=== PATIENT | female | born 1975 | race Caucasian/White ===

== ENCOUNTER 2017-11-04 12:41 | Emergency (ER) | payer OTHER ==
[2017-11-04] MEDS: NS 0.9% 1000 ML* 2,000 ML IV ONE ×2 (13:15→13:16)
[2017-11-04 13:26] LABS: ABS Basophils 0 10^3/ul (0-0.2); ABS Eosinophils 0.1 10^3/ul (0-0.6); ABS Lymphocytes 1.3 10^3/ul (1.0-4.8); ABS Monocytes 0.4 10^3/ul (0-0.8); ABS Nucleated RBC 0 10^3/ul; Eosinophil % 2.4 % (0-6); Hematocrit 37 % (35-47); Hemoglobin 12.5 g/dl (12.0-16.0); Lymphocyte % 22.1 % (25-47); Mean Corpuscular HGB Conc 34 g/dl (31-36); Mean Corpuscular Hemoglobin 31 pg (27-31); Mean Corpuscular Volume 90 fL (80-97); Mean Platelet Volume 8.6 um3 (7.4-10.4); Nucleated Red Blood Cells % 0; Platelet Count 250 10^3/ul (150-450); Red Blood Count 4.05 10^6/ul (4.0-5.4); Red Cell Distribution Width 13 % (10.5-15); White Blood Count 5.9 10^3/ul (3.5-10.8)
[2017-11-04 13:43] LABS: EGFR Non-African American 97.5 (>60)
[2017-11-04 14:18] LABS: Urine Appearance Clear; Urine Blood Negative (Negative); Urine Color Yellow; Urine Ketones Negative (Negative); Urine Protein Negative (Negative); Urine Specific Gravity 1.019 (1.010-1.030); Urine Urobilinogen Negative (Negative)
--- NOTE | 2017-11-04 14:29 | RAD ---
INDICATION: Left lower quadrant pain COMPARISON: Pelvic sonogram June 16, 2016 TECHNIQUE: Longitudinal and transverse transvaginal and Limited transabdominal scans of the pelvis were obtained. FINDINGS: Uterus: The uterus is normal in size. There are no focal masses. The uterus measures 8.1 x 3.1 x 4.5 cm. Endometrial thickness: The endometrial thickness is measured at 1.0 cm. . Free fluid: There is no significant free fluid . Ovaries: The ovaries are normal in size. The right ovary measures 3.0 x 1.9 x 3.4 cm. The left ovary measures 3.1 x 2.0 x 2.6 cm. There are multiple small follicles. Doppler interrogation demonstrates flow to each ovary. Other: None IMPRESSION: NEGATIVE EXAMINATION.
--- NOTE | 2017-11-04 16:29 | RAD ---
INDICATION: Left lower quadrant abdominal pain, history of diverticulitis. COMPARISON: Correlation is made with a prior study from June 05, 2016. TECHNIQUE: A CT scan of the abdomen and pelvis was performed without intravenous and with oral contrast. Contiguous axial sections were obtained from the lung bases through the symphysis pubis. Images were reconstructed in the coronal and sagittal planes. FINDINGS: The lung bases are clear. No pleural effusion is present. The liver and spleen are within normal limits in size without significant focal abnormality on this noncontrast study. No calcified gallstones are seen. The pancreas appears to be within normal limits in size. The adrenal glands and kidneys are normal in size. No renal calculi or hydronephrosis is seen. The aorta is normal in caliber without significant calcific plaque. No significant enlarged retroperitoneal lymph nodes are seen. The stomach, small and large bowel appear nondistended. The appendix is within normal limits. There is mild descending and sigmoid diverticulosis without evidence for diverticulitis. There is a soft tissue density mass arising from the subserosal surface of the fundus of uterus on the left side measuring approximately 3.0 x 2.0 cm in size which is unchanged from the prior exam suggestive of a fibroid although nonspecific. No significant focal osseous abnormality is seen. IMPRESSION: 1. NO EVIDENCE FOR ACUTE FINDING OR CAUSE FOR THE PATIENT'S ABDOMINAL PAIN IS SEEN. 2. SOFT TISSUE DENSITY MASS ARISING FROM THE FUNDUS OF THE UTERUS UNCHANGED FROM THE PRIOR EXAM SUGGESTIVE OF A SUBSEROSAL LEIOMYOMA ALTHOUGH NONSPECIFIC. THIS COULD BE FURTHER EVALUATED WITH AN OUTPATIENT PELVIC ULTRASOUND OR MRI CLINICALLY NEEDED.
--- NOTE | 2017-11-04 17:16 | ED ---
Rahul Way Jennifer, scribed for Isai Barajas MD on 11/04/17 at 1255 . Abdominal Pain/Female - HPI Summary HPI Summary: The patient is a 42 year old female who was sent to the ED by her PMD for abdominal pain that began 3-4 days ago. The patient reports she has a history of diverticulitis but this pain is slightly different. Her abdominal pain is located to the lower left of the midline and is constant. It is rated a 7/10 at its worst. The patient reports that deep breaths worsen the pain and characterizes it as a stabbing pain. She adds that when she urinates or has bowel movements, her abdominal spasms and cramps. The pain also radiates to her lower back. She additionally complains of feel achey and feverish, as well as nauseous when eating. She denies vaginal discharge. Her last menstrual period was two weeks ago. - History of Current Complaint Chief Complaint: EDAbdPain Stated Complaint: ABD PAIN Time Seen by Provider: 11/04/17 12:48 Hx Obtained From: Patient Hx Last Menstrual Period: 1.5 WEEKS AGO Onset/Duration: Sudden Onset, Lasting Days - 3-4 days ago, Still Present Timing: Constant Severity Initially: Moderate Severity Currently: Moderate Pain Intensity: 5 Pain Scale Used: 0-10 Numeric Location: Umbilical Radiates: Yes Radiates to: Back - Lower back Character: Sharp, Cramping - Spasming Aggravating Factor(s): Movement, Deep Breaths Alleviating Factor(s): Nothing Associated Signs and Symptoms: Positive: Other: - Abdominal pain, cramping, feels achey and feverish, nauseous when eating, decreased appetite. NEGATIVE: discharge Allergies/Adverse Reactions: Allergies Allergy/AdvReac Type Severity Reaction Status Date / Time erythromycin base Allergy Itching Verified 11/04/17 14:09 latex Allergy Itching Verified 11/04/17 14:09 metronidazole [From Flagyl] Allergy Muscle Ache Verified 11/04/17 14:09 peanut Allergy Anaphylatic Verified 11/04/17 14:09 Shock prednisone Allergy Unknown Verified 11/04/17 14:09 Reaction Details Sulfa (Sulfonamide Allergy Itching Verified 11/04/17 14:09 Antibiotics) hida scan chemicals Allergy Anxiety Uncoded 10/26/17 10:46 Home Medications: Home Medications NK [No Home Medications Reported] 11/04/17 [History Confirmed 11/04/17] PMH/Surg Hx/FS Hx/Imm Hx Endocrine/Hematology History: Denies: Hx Diabetes, Hx Thyroid Disease Cardiovascular History: Denies: Hx Congestive Heart Failure, Hx Hypertension, Hx Pacemaker/ICD Respiratory History: Denies: Hx Asthma, Hx Chronic Obstructive Pulmonary Disease (COPD) GI History: Reports: Hx Diverticulosis, Hx Pyloric Stenosis, Other GI Disorders - HIATAL HERNIA Denies: Hx Ulcer History: Denies: Hx Renal Disease Sensory History: Denies: Hx Hearing Aid Neurological History: Reports: Other Neuro Impairments/Disorders - post concussion syndrome Psychiatric History: Reports: Hx Panic Disorder - Surgical History Surgery Procedure, Year, and Place: 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 LAPROSCOPY TO R/O ENDOMETRIOSIS Infectious Disease History: No Infectious Disease History: Denies: Hx Clostridium Difficile, Hx Hepatitis, Hx Human Immunodeficiency Virus (HIV), Hx of Known/Suspected MRSA, Hx Shingles, Hx Tuberculosis, Traveled Outside the [place] in Last 30 Days - Family History Known Family History: Positive: Hypertension, Diabetes - Social History Alcohol Use: None Substance Use Type: Reports: None Substance Use Comment - Amount & Last Used: anxiety Smoking Status (MU): Former Smoker Review of Systems Positive: Fever - Feels feverish, Other - Feels achey Positive: Abdominal Pain, Nausea Negative: discharge All Other Systems Reviewed And Are Negative: Yes Physical Exam - Summary Physical Exam Summary: General: well-appearing, no pain distress Skin: warm, color reflects adequate perfusion, dry Head: normal Eyes: EOMI, TENNILLE ENT: normal Neck: supple, nontender Respiratory: CTA, breath sounds present Cardiovascular: RRR Abdomen: soft, tender in LLQ Bowel: present Musculoskeletal: normal, strength/ROM intact Neurological: normal, sensory/motor intact, A&O x3 Psychological: affect/mood appropriate Triage Information Reviewed: Yes Vital Signs On Initial Exam: Initial Vitals Temp Pulse Resp BP Pulse Ox 98.5 F 56 16 86/65 98 11/04/17 12:43 11/04/17 12:43 11/04/17 12:43 11/04/17 12:43 11/04/17 12:43 Vital Signs Reviewed: Yes Diagnostics - Vital Signs Vital Signs Temp Pulse Resp BP Pulse Ox 11/04/17 12:43 98.5 F 56 16 86/65 98 - Laboratory Lab Results: Lab Results 11/04/17 11/04/17 11/04/17 Range/Units 13:00 13:00 13:50 WBC 5.9 (3.5-10.8) 10^3/ul RBC 4.05 (4.0-5.4) 10^6/ul Hgb 12.5 (12.0-16.0) g/dl Hct 37 (35-47) % MCV 90 (80-97) fL MCH 31 (27-31) pg MCHC 34 (31-36) g/dl RDW 13 (10.5-15) % Plt Count 250 (150-450) 10^3/ul MPV 8.6 (7.4-10.4) um3 Neut % (Auto) 67.3 (38-83) % Lymph % (Auto) 22.1 L (25-47) % [place] % (Auto) 7.5 H (0-7) % Eos % (Auto) 2.4 (0-6) % Baso % (Auto) 0.7 (0-2) % Absolute Neuts (auto) 4.0 (1.5-7.7) 10^3/ul Absolute Lymphs (auto) 1.3 (1.0-4.8) 10^3/ul Absolute Monos (auto) 0.4 (0-0.8) 10^3/ul Absolute Eos (auto) 0.1 (0-0.6) 10^3/ul Absolute Basos (auto) 0 (0-0.2) 10^3/ul Absolute Nucleated RBC 0 10^3/ul Nucleated RBC % 0 Sodium 136 L (139-145) mmol/L Potassium 3.9 (3.5-5.0) mmol/L Chloride 103 (101-111) mmol/L Carbon Dioxide 27 (22-32) mmol/L Anion Gap 6 (2-11) mmol/L BUN 14 (6-24) mg/dL Creatinine 0.67 (0.51-0.95) mg/dL Est GFR ( Amer) 125.4 (>60) Est GFR (Non-Af Amer) 97.5 (>60) BUN/Creatinine Ratio 20.9 H (8-20) Glucose 99 (70-100) mg/dL Calcium 9.7 (8.6-10.3) mg/dL Total Bilirubin 0.30 (0.2-1.0) mg/dL AST 14 (13-39) U/L ALT 12 (7-52) U/L Alkaline Phosphatase 92 (34-104) U/L C-Reactive Protein 1.37 (< 5.00) mg/L Total Protein 7.1 (6.4-8.9) g/dL Albumin 4.3 (3.2-5.2) g/dL Globulin 2.8 (2-4) g/dL Albumin/Globulin Ratio 1.5 (1-3) Beta HCG, Quant < 0.60 mIU/mL Urine Color Yellow Urine Appearance Clear Urine pH 5.0 (5-9) Ur Specific [place] 1.019 (1.010-1.030) Urine Protein Negative (Negative) Urine Ketones Negative (Negative) Urine Blood Negative (Negative) Urine Nitrate Negative (Negative) Urine Bilirubin Negative (Negative) Urine Urobilinogen Negative (Negative) Ur Leukocyte Esterase Negative (Negative) Urine Glucose Negative (Negative) Result Diagrams: 11/04/17 13:00 11/04/17 13:00 Lab Statement: Any lab studies that have been ordered have been reviewed, and results considered in the medical decision making process. - CT CT Abd/Pel CT Interpretation: No Acute Changes - 1. NO EVIDENCE FOR ACUTE FINDING OR CAUSE FOR THE PATIENT'S ABDOMINAL PAIN IS SEEN. 2. SOFT TISSUE DENSITY MASS ARISING FROM THE FUNDUS OF THE UTERUS UNCHANGED FROM THE PRIOR EXAM SUGGESTIVE OF A SUBSEROSAL LEIOMYOMA ALTHOUGH NONSPECIFIC. THIS COULD BE FURTHER EVALUATED WITH AN OUTPATIENT PELVIC ULTRASOUND OR MRI CLINICALLY NEEDED. Dr. Barajas has reviewed this report. CT Interpretation Completed By: Radiologist - Additional Comments Diagnostic Additional Comments: Transvaginal US. Interpreted by a radiologist. IMPRESSION: NEGATIVE EXAMINATION. Dr. Barajas has reviewed this report. Abdominal Pain Fem Course/Dx - Course Course Of Treatment: Medications reviewed. Allergies noted. DISCUSSED RESULTS WITH THE PATIENT. DISCUSSED THE PROBABLE LEIOMYOMA WITH THE PATIENT. F/U PMD/ ONGYN; RETURN TO ED IF WORSE. - Diagnoses Provider Diagnoses: Pelvic pain, LLQ abdominal pain Discharge - Sign-Out/Discharge Documenting (check all that apply): Discharge - Discharge Plan Condition: Stable Disposition: HOME Patient Education Materials: Pelvic Pain in Women (ED), Acute Abdominal Pain ( ED) Referrals: Bailey Mason MD [Primary Care Provider] - Additional Instructions: FOLLOW UP WITH YOUR PRIMARY CARE DOCTOR AND CAKE PUNCHER. RETURN TO THE EMERGENCY DEPARTMENT FOR ANY WORSENING OF YOUR CONDITION; PAIN, FEVER, YOU FEEL ILL OR QUESTIONS OR CONCERNS. - Billing Disposition and Condition Condition: STABLE Disposition: HOME The documentation as recorded by the Rahul [address] Jennifer accurately reflects the service I personally performed and the decisions made by me, Isai Barajas MD.
[2017-11-04 17:22] VITALS: BP 105/68
== END 2017-11-04 17:23 | disposition home or self-care (01) ==
LOC: ED 12:41
DX: R10.2 Pelvic and perineal pain (principal); R10.32 Left lower quadrant pain; Z87.891 Personal history of nicotine dependence
CPT/HCPCS: 36415; 74176; 76830; 80053; 81003; 84702; 85025; 86140; 96360; 99282